=== PATIENT | male | born 1990 | race African-American/Black ===

== ENCOUNTER 2020-10-18 08:26 | Emergency (ER) | payer MEDICAID ==
[~2020-10-18] VITALS: Ht 188 cm; Wt 80.0 kg
[2020-10-18 08:38] VITALS: BP 130/59
[2020-10-18] MEDS ORDERED: ALBUTEROL (0.083%) 2.5MG/3ML NEB HHN STA (08:41)
[2020-10-18] MEDS ORDERED: PREDNISONE 20MG TABLET PO STA (08:41)
== END 2020-10-18 10:16 | disposition home or self-care (01) ==
LOC: ER 08:46
DX: J45.901 Unspecified asthma with (acute) exacerbation (principal)
CPT/HCPCS: 71045; 94640; 99283; J7512; Z7610

== ENCOUNTER 2021-09-03 08:34 | Emergency (ER) | payer MEDICAID ==
[~2021-09-03] VITALS: Ht 188 cm; Wt 84.0 kg
[2021-09-03] MEDS ORDERED: ONDANSETRON HCL 4MG TABLET PO ONE (09:00)
[2021-09-03] MEDS ORDERED: ACETAMINOPHEN WITH CODEINE 300/30MG TABLET PO ONE (09:00)
[2021-09-03] MEDS ORDERED: IBUP-2028 PO (11:52)
[2021-09-03 12:07] VITALS: BP 132/81
== END 2021-09-03 12:09 | disposition home or self-care (01) ==
LOC: ER 08:34
DX: K08.89 Other specified disorders of teeth and supporting structures (principal); M25.512 Pain in left shoulder; R07.81 Pleurodynia; R06.00 Dyspnea, unspecified; R11.0 Nausea; R51.9 Headache, unspecified
CPT/HCPCS: 71100; 73030; 93005; 99284; Q0162

== ENCOUNTER 2022-02-23 06:46 | Emergency (ER) | payer BC, MEDICAID, OTHER ==
[~2022-02-23] VITALS: Ht 188 cm; Wt 84.0 kg
[~2022-02-23 06:46] MED LIST: IBUP-2028 PO
[2022-02-23] MEDS ORDERED: ONDANSETRON HCL 4MG/2ML INJ IV STA (08:06)
[2022-02-23] MEDS ORDERED: KETOROLAC 30MG/ML VIAL IV STA (08:06)
[2022-02-23] MEDS ORDERED: SODIUM CHLORIDE 0.9% 1,000 ML IV ONE (08:15)
[2022-02-23 08:38] LABS: HEMATOCRIT. 42.2 % (42.0-52.0); MEAN CORPUSCULAR HEMOGLOBIN 29.1 pg (28.0-32.0); MEAN PLATELET VOLUME 7.7 fl (7.4-10.4); PLATELET 155 x1000/uL (130-400); RED CELL DISTRIBUTION WIDTH 14.8 % (11.6-14.6)
[2022-02-23 08:42] VITALS: BP 104/50
[2022-02-23 08:43] LABS: CHLORIDE 110 mEq/L (98-107)
[2022-02-23] MEDS ORDERED: TOPUD PO (09:31)
[2022-02-23 09:42] LABS: PLATELET ESTIMATE NORMAL
[2022-02-24] MEDS ORDERED: ONDA4TAB5 MT (10:01)
[2022-02-24] MEDS ORDERED: IBUP-2029 MT (10:01)
== END 2022-02-23 10:38 | disposition home or self-care (01) ==
LOC: ER 06:46
DX: U07.1 COVID-19 (principal)
CPT/HCPCS: 36415; 71045; 80053; 85025; 87426; 96361; 96374; 96375; 99284; J1885; J2405; J7030

== ENCOUNTER 2022-02-24 09:31 | Emergency (ER) | payer OTHER ==
[~2022-02-24] VITALS: Ht 188 cm; Wt 84.0 kg
[~2022-02-24 09:31] MED LIST changes: +TOPUD PO
[2022-02-24] MEDS ORDERED: PANTOPRAZOLE SODIUM 40 MG/VIAL IV ONE (10:00)
[2022-02-24] MEDS ORDERED: SODIUM CHLORIDE 0.9% 1,000 ML IV ONE (10:00)
[2022-02-24] MEDS ORDERED: HALOPERIDOL LACTATE 5MG/ML VIAL IM ONE (10:00)
[2022-02-24] MEDS ORDERED: KETOROLAC 30MG/ML VIAL IV ONE (10:00)
[2022-02-24] MEDS ORDERED: ONDA4TAB5 MT (10:01)
[2022-02-24] MEDS ORDERED: IBUP-2029 MT (10:01)
[2022-02-24 10:17] VITALS: BP 129/64
== END 2022-02-24 16:48 | disposition home or self-care (01) ==
LOC: ER 16:01
DX: B34.9 Viral infection, unspecified (principal); R11.2 Nausea with vomiting, unspecified; F12.10 Cannabis abuse, uncomplicated; J45.909 Unspecified asthma, uncomplicated; Z86.59 Personal history of other mental and behavioral disorders
CPT/HCPCS: 93005; 96361; 96372; 96374; 96375; 99284; C9113; J1630; J1885; J7030

== ENCOUNTER 2023-01-06 12:41 | Emergency (ER) | payer BC, MEDICAID ==
[~2023-01-06] VITALS: Ht 188 cm; Wt 84.0 kg
[~2023-01-06 12:41] MED LIST changes: +IBUP-2029 MT; +ONDA4TAB5 MT
[2023-01-06 13:19] VITALS: BP 136/76
[2023-01-06] MEDS ORDERED: OXYCODONE HCL/ACETAMINOPHEN 5/325MG TABLET PO ONE (13:45)
[2023-01-06] MEDS ORDERED: OXYCODONE HCL/ACETAMINOPHEN 5/325MG TABLET PO NR (18:12)
[2023-01-06] MEDS ORDERED: NAPR-681 MT (18:33)
== END 2023-01-06 18:47 | disposition home or self-care (01) ==
LOC: ER 12:41
DX: N50.89 Other specified disorders of the male genital organs (principal); Z91.81 History of falling
CPT/HCPCS: 76870; 93976; 99284

== ENCOUNTER 2023-02-26 21:59 | Emergency (ER) | payer BC, MEDICAID ==
[~2023-02-26] VITALS: Ht 188 cm; Wt 82.8 kg
[~2023-02-26 21:59] MED LIST changes: +NAPR-681 MT
[2023-02-27] MEDS ORDERED: HYDROCODONE/ACETAMINOPHEN 5/325MG TABLET PO ONE (01:00)
[2023-02-27 02:30] VITALS: BP 120/57
[2023-02-27] MEDS ORDERED: KETOROLAC 30MG/ML VIAL IM ONE (02:30)
[2023-02-27] MEDS ORDERED: HYDR-4001 MT (02:39)
[2023-02-27] MEDS ORDERED: IBUP-2029 MT (02:39)
== END 2023-02-27 03:37 | disposition home or self-care (01) ==
LOC: ER 21:59
DX: S50.01XA Contusion of right elbow, initial encounter (principal); F12.10 Cannabis abuse, uncomplicated; Z86.59 Personal history of other mental and behavioral disorders; W18.30XA Fall on same level, unspecified, initial encounter; Y93.89 Activity, other specified; Y92.89 Other specified places as the place of occurrence of the external cause; Y99.8 Other external cause status
CPT/HCPCS: 29105; 73080; 73090; 96372; 99284; J1885

== ENCOUNTER 2024-08-12 17:47 | Emergency (ER) | payer BC, MEDICAID ==
[~2024-08-12] VITALS: Ht 182.9 cm; Wt 85.0 kg
[~2024-08-12 17:47] MED LIST changes: +HYDR-4001 MT
[2024-08-12 17:48] VITALS: O2SAT 99
[2024-08-12 17:49] VITALS: O2SAT 100
[2024-08-12] MEDS ORDERED: ONDANSETRON HCL 4MG/2ML INJ IV STA (17:58)
[2024-08-12 18:42] LABS: BASOPHILS % 0.5 % (0.0-2.0); EOSINOPHILS % 0.1 % (0.0-5.0); HEMATOCRIT. 41.4 % (42.0-52.0); HEMOGLOBIN. 13.7 g/dL (14.0-18.0); LYMPHOCYTES % 18.4 % (20.0-50.0); MEAN CORPUSCULAR HEMOGLOBIN 29.2 pg (28.0-32.0); MEAN CORPUSCULAR HGB CONC 33.2 g/dL (31.0-37.0); MEAN CORPUSCULAR VOLUME 87.8 fL (80.0-94.0); MEAN PLATELET VOLUME 8.3 fl (7.4-10.4); MONOCYTES % 9.5 % (2.0-8.0); NEUTROPHILS % 71.5 % (40.0-76.0); PLATELET 175 x1000/uL (130-400); RED BLOOD CELL COUNT 4.71 mill/uL (4.7-6.1); RED CELL DISTRIBUTION WIDTH 14.8 % (11.6-14.6)
[2024-08-12 18:48] LABS: CHLORIDE 103 mEq/L (98-107); POTASSIUM 3.8 mEq/L (3.5-5.1); SODIUM 141 mEq/L (136-145)
[2024-08-12 18:49] LABS: CARBON DIOXIDE 30 mEq/L (21-32)
[2024-08-12 18:50] LABS: CALCIUM 9.6 mg/dL (8.7-10.4)
[2024-08-12 18:54] LABS: CREATININE 1.3 mg/dL (0.6-1.3); GLUCOSE 107 mg/dL (70-105)
[2024-08-12 18:55] LABS: UREA NITROGEN BLOOD 15 mg/dL (9-23)
[2024-08-12 18:56] LABS: ALANINE AMINOTRANSFERASE 23 IU/L (10-49); ALBUMIN 4.8 g/dL (3.2-4.8); ASPARTATE AMINOTRANSFERASE 20 IU/L (<34)
[2024-08-12 18:57] LABS: BILIRUBIN DIRECT 0.2 mg/dL (<=3.0); BILIRUBIN TOTAL 0.6 mg/dL (0.1-1.0); PROTEIN TOTAL 7.9 g/dL (6.0-8.3)
[2024-08-12] MEDS: SODIUM CHLORIDE 0.9% 1,000 ML IV ONE (19:30)
[2024-08-12] MEDS: ONDANSETRON HCL 4MG/2ML INJ IV NR (20:00)
[2024-08-12] MEDS ORDERED: ONDA4TAB50 MT (20:08)
[2024-08-12 20:20] VITALS: BP 115/72; PULSE 86; RESP 17; TEMP 36.66960
== END 2024-08-12 20:46 | disposition home or self-care (01) ==
LOC: ER 17:47
DX: R11.2 Nausea with vomiting, unspecified (principal); J45.909 Unspecified asthma, uncomplicated; F31.9 Bipolar disorder, unspecified; F20.9 Schizophrenia, unspecified; F12.10 Cannabis abuse, uncomplicated; Z79.1 Long term (current) use of non-steroidal anti-inflammatories (NSAID)
CPT/HCPCS: 80076; 80048; 83690; 85025; 36415; 96374; 99283; J2405; J7030; Z7610

== ENCOUNTER 2025-02-01 14:31 | Emergency (ER) | payer MEDICAID ==
[~2025-02-01] VITALS: Ht 188 cm; Wt 84.0 kg
[~2025-02-01 14:31] MED LIST changes: +ONDA4TAB50 MT
[2025-02-01 14:34] VITALS: BP 112/53; PULSE 81; RESP 12; TEMP 37.2; O2SAT 98
[2025-02-01] MEDS ORDERED: CEL200 MT (15:53)
[2025-02-01] MEDS ORDERED: CYCL10TA21 MT (15:53)
== END 2025-02-01 16:11 | disposition home or self-care (01) ==
LOC: ER 14:31
DX: M25.512 Pain in left shoulder (principal); F20.9 Schizophrenia, unspecified; F31.9 Bipolar disorder, unspecified; J45.909 Unspecified asthma, uncomplicated; F10.90 Alcohol use, unspecified, uncomplicated; F12.90 Cannabis use, unspecified, uncomplicated; Z79.1 Long term (current) use of non-steroidal anti-inflammatories (NSAID); Y90.9 Presence of alcohol in blood, level not specified
CPT/HCPCS: 99283